=== PATIENT | male | born 2000 | race American Indian/Alaskan Native ===

== ENCOUNTER 2020-03-15 17:50 | Inpatient (IN) | payer MEDICAID ==
[~2020-03-15] VITALS: Ht 180.3 cm; Wt 59.0 kg
[2020-03-15] MEDS ORDERED: SERT50TA12 PO (19:11)
[2020-03-15 19:32] LABS: BASOPHILS % (AUTO) 0.6 % (0.0-2.0); EOSINOPHILS % (AUTO) 2.5 % (1.0-6.0); HEMATOCRIT 48.6 % (41-53); HEMOGLOBIN 15.9 g/dL (13.5-17.5); LYMPHOCYTES # (AUTO) 4.6 K/uL (1.0-4.8); LYMPHOCYTES % (AUTO) 45.2 % (22.0-44.0); MEAN CORPUSCULAR HGB CONC 32.8 G/dL (31.0-37.0); MEAN CORPUSCULAR VOLUME 88 fL (80-100); MONOCYTES # (AUTO) 0.7 K/uL (0.1-1.0); MONOCYTES % (AUTO) 7.3 % (2.0-9.0); NEUTROPHILS # (AUTO) 4.5 K/uL (1.8-7.7); NEUTROPHILS % (AUTO) 44.4 % (40.0-70.0); PLATELET COUNT (AUTO) 209 K/uL (150-450); RED CELL DISTRIBUTION WIDTH 13.1 % (11.5-14.5)
[2020-03-15 19:47] LABS: ANION GAP 12 mmol/L (8-16); CALCIUM, TOTAL 8.5 mg/dL (8.8-10.5); CARBON DIOXIDE 23 mmol/L (22-29); CHLORIDE 103 mmol/L (98-107); CREATININE 1.09 mg/dL (0.60-1.30); GLOMERULAR FILTR. RATE CALC > 60 mL/min (>60); GLUCOSE,RANDOM 94 mg/dL (70-110); POTASSIUM 3.2 mmol/L (3.5-5.1); SODIUM SERUM 138 mmol/L (136-145); UREA NITROGEN, BLOOD 13 mg/dL (7-18)
[2020-03-15 19:52] LABS: ACETAMINOPHEN 5 mcg/mL (10-30); ALANINE AMINOTRANSFERASE 30 U/L (12-78); ALBUMIN 3.8 g/dL (3.4-5.0); ALKALINE PHOSPHATASE 51 U/L (46-116); ASPARTATE AMINOTRANSFERASE 21 U/L (15-37); BILIRUBIN,TOTAL 0.4 mg/dL (0.1-1.0); TOTAL PROTEIN, SERUM 7.4 g/dL (6.4-8.2)
[2020-03-15] MEDS ORDERED: POTASSIUM CHLORIDE 10% 40 MEQ/30 ML LIQUID UDCUP PO ONE (20:45)
[2020-03-15 21:22] LABS: CREATINE KINASE, TOTAL ONLY 106 U/L (39-308)
[2020-03-15] MEDS ORDERED: SODIUM CHLORIDE 0.9% 2,000 ML IV ONE (22:15)
[2020-03-15] MEDS ORDERED: MAGNESIUM SULFATE 2 GM/WATER 50 ML IV ONE (22:15)
[2020-03-15] MEDS ORDERED: LORazepam 2 MG/ML VIAL IVP ONE ×2 (22:15)
[2020-03-15] MEDS ORDERED: ACETAMINOPHEN 325 MG TABLET PO PRN (23:30)
[2020-03-16] MEDS ORDERED: LORazepam 2 MG/ML VIAL IVP ONE ×3 (01:15→14:45)
[2020-03-16 02:08] LABS: CARBON DIOXIDE 22 mmol/L (22-29); CHLORIDE 105 mmol/L (98-107); POTASSIUM 4.4 mmol/L (3.5-5.1); SODIUM SERUM 136 mmol/L (136-145)
[2020-03-16 02:09] LABS: ANION GAP 9 mmol/L (8-16); CALCIUM, TOTAL 7.3 mg/dL (8.8-10.5); CREATININE 1.19 mg/dL (0.60-1.30); GLOMERULAR FILTR. RATE CALC > 60 mL/min (>60); GLUCOSE,RANDOM 118 mg/dL (70-110); UREA NITROGEN, BLOOD 12 mg/dL (7-18)
[2020-03-16 02:18] LABS: LACTIC ACID 3.9 mmol/L (0.4-2.0)
[2020-03-16] MEDS ORDERED: CALCIUM GLUCONATE 100 MG/ML 10 ML IVP ONE (02:30)
[2020-03-16 02:32] LABS: CREATINE KINASE, TOTAL ONLY 100 U/L (39-308)
[2020-03-16 02:58] LABS: ABG A-A DIFF O2 7.4 mmHg (10-20.0); ABG BASE EXCESS -7.6 mmol/L (-2.0-3.0); ABG CARBOXYHEMOGLOBIN 0.5 % (0.0-3.0); ABG HCO3 18.8 mmol/L (22.0-26.0); ABG METHEMOGLOBIN 0.4 % (0.0-1.5); ABG OXYGEN CONTENT 20.2 mL/dL (15.0-23.0); ABG OXYGEN SATURATION 96.9 % (95.0-98.0); ABG PCO2 40 mmHg (35-45); ABG TOTAL HEMOGLOBIN 14.9 G/dL (12.0-18.0); PO2, ARTERIAL BG 94.6 mmHg (80.0-100.0); SOURCE, BLOOD GAS ARTERIAL; TEMPERATURE, FAHRENHEIT, BG 98.5 FAHREN (96.0-98.6)
[2020-03-16 03:00] LABS: ABG PH 7.293 (7.350-7.450); O2 DEVICE,BLOOD GAS ROOM AIR (ROOM AIR); SITE, BLOOD GAS RT RADIAL
[2020-03-16] MEDS ORDERED: MAGNESIUM SULFATE 2 GM/WATER 50 ML IV ONE (03:00)
[2020-03-16 03:32] LABS: AMPHET/METH SCREEN,URINE NEGATIVE (NEGATIVE); BARBITURATE SCREEN, URINE NEGATIVE (NEGATIVE); BENZODIAZEPINES SCREEN,URINE NEGATIVE (NEGATIVE); CANNABINOID SCREEN,URINE NEGATIVE (NEGATIVE); COCAINE SCREEN,URINE NEGATIVE (NEGATIVE); METHADONE SCREEN, URINE NEGATIVE (NEGATIVE); OPIATE SCREEN,URINE NEGATIVE (NEGATIVE); PHENCYCLIDINE SCREEN,URINE NEGATIVE (NEGATIVE)
[2020-03-16] MEDS ORDERED: SODIUM CHLORIDE 0.45% 2,000 ML IV ONE (14:00)
[2020-03-16] MEDS ORDERED: HALOPERIDOL LACTATE 5 MG/ML VIAL IVP ONE (14:45)
[2020-03-16 15:12] LABS: ABG A-A DIFF O2 29.8 mmHg (10-20.0); ABG BASE EXCESS -3.8 mmol/L (-2.0-3.0); ABG CARBOXYHEMOGLOBIN 1.2 % (0.0-3.0); ABG HCO3 21.9 mmol/L (22.0-26.0); ABG METHEMOGLOBIN 0.3 % (0.0-1.5); ABG OXYGEN CONTENT 20.1 mL/dL (15.0-23.0); ABG OXYGEN SATURATION 96.2 % (95.0-98.0); ABG OXYHEMOGLOBIN 94.8 % (94.0-100.0); ABG PCO2 35 mmHg (35-45); ABG PH 7.394 (7.350-7.450); ABG TOTAL HEMOGLOBIN 15.1 G/dL (12.0-18.0); PO2, ARTERIAL BG 77.5 mmHg (80.0-100.0); SOURCE, BLOOD GAS ARTERIAL; TEMPERATURE, FAHRENHEIT, BG 98.6 FAHREN (96.0-98.6)
[2020-03-16 15:13] LABS: SITE, BLOOD GAS RT RADIAL
[2020-03-16 15:14] LABS: O2 DEVICE,BLOOD GAS ROOM AIR (ROOM AIR)
[2020-03-16 16:50] LABS: LACTIC ACID 3.1 mmol/L (0.4-2.0)
[2020-03-17] VITALS (7 sets, daily range): BP systolic 117–134; BP diastolic 73–81
[2020-03-17 08:07] LABS: BASOPHILS % (AUTO) 0.3 % (0.0-2.0); EOSINOPHILS % (AUTO) 1.6 % (1.0-6.0); HEMATOCRIT 46.5 % (41-53); HEMOGLOBIN 15.7 g/dL (13.5-17.5); LYMPHOCYTES # (AUTO) 2.2 K/uL (1.0-4.8); LYMPHOCYTES % (AUTO) 23.8 % (22.0-44.0); MEAN CORPUSCULAR HEMOGLOBIN 29.8 pg (26.0-34.0); MEAN CORPUSCULAR HGB CONC 33.8 G/dL (31.0-37.0); MEAN CORPUSCULAR VOLUME 88 fL (80-100); MONOCYTES # (AUTO) 0.7 K/uL (0.1-1.0); MONOCYTES % (AUTO) 7.9 % (2.0-9.0); NEUTROPHILS # (AUTO) 6.3 K/uL (1.8-7.7); NEUTROPHILS % (AUTO) 66.4 % (40.0-70.0); PLATELET COUNT (AUTO) 165 K/uL (150-450); RED BLOOD CELL COUNT(AUTO) 5.28 MIL/uL (4.50-5.90); RED CELL DISTRIBUTION WIDTH 13.1 % (11.5-14.5)
[2020-03-17 08:34] LABS: ANION GAP 9 mmol/L (8-16); CALCIUM, TOTAL 8.7 mg/dL (8.8-10.5); CARBON DIOXIDE 27 mmol/L (22-29); CHLORIDE 100 mmol/L (98-107); CREATININE 0.93 mg/dL (0.60-1.30); GLOMERULAR FILTR. RATE CALC > 60 mL/min (>60); GLUCOSE,RANDOM 89 mg/dL (70-110); POTASSIUM 3.8 mmol/L (3.5-5.1); SODIUM SERUM 136 mmol/L (136-145); UREA NITROGEN, BLOOD 11 mg/dL (7-18)
[2020-03-17 08:39] LABS: ALANINE AMINOTRANSFERASE 31 U/L (12-78); ALBUMIN 3.6 g/dL (3.4-5.0); ALKALINE PHOSPHATASE 50 U/L (46-116); ASPARTATE AMINOTRANSFERASE 31 U/L (15-37); BILIRUBIN,TOTAL 1.8 mg/dL (0.1-1.0); TOTAL PROTEIN, SERUM 7.5 g/dL (6.4-8.2)
[2020-03-17 08:43] LABS: LACTIC ACID 0.9 mmol/L (0.4-2.0)
[2020-03-17] MEDS ORDERED: LORazepam 2 MG TABLET PO PRN (10:45)
[2020-03-17] MEDS ORDERED: HALOPERIDOL 5 MG TABLET PO PRN (10:45)
[2020-03-17] MEDS ORDERED: ZOLPIDEM TARTRATE 10 MG TABLET PO PRN (10:45)
[2020-03-17] MEDS ORDERED: MAGNESIUM HYDROXIDE SUSPENSION 30 ML UDCUP PO PRN (13:30)
[2020-03-17] MEDS ORDERED: NICOTINE 14 MG/24 HOUR PATCH TD PRN (13:30)
[2020-03-17] MEDS ORDERED: ONDANSETRON HCL 4 MG TABLET PO PRN (13:30)
[2020-03-17] MEDS ORDERED: IBUPROFEN 400 MG TABLET PO PRN (13:30)
[2020-03-17] MEDS ORDERED: CloNIDine HCL 0.1 MG TABLET PO PRN (13:30)
[2020-03-17] MEDS ORDERED: DOCUSATE SODIUM 100 MG CAPSULE PO PRN (13:30)
[2020-03-17] MEDS ORDERED: MAG HYDROX/AL HYDROX/SIMETH ES 30 ML SUSPENSION UDCUP PO PRN (13:30)
[2020-03-17] MEDS ORDERED: ACETAMINOPHEN 325 MG TABLET PO PRN (13:30)
[2020-03-17] MEDS ORDERED: PETROLATUM,WHITE 28 GM JELLY TP PRN (13:30)
[2020-03-17] MEDS ORDERED: LOPERAMIDE HCL 2 MG CAPSULE PO PRN (13:30)
[2020-03-17] MEDS ORDERED: GuaiFENesin/D-METHORPHAN [SUGAR-FREE] 200-20MG/10 ML SYRUP UDCUP PO PRN (13:30)
[2020-03-17] MEDS ORDERED: ALBUTEROL SULFATE HFA 90 MCG/PUFF 8 GM INHALER IH PRN (13:30)
[2020-03-17] MEDS ORDERED: DIAZEPAM 10 MG TABLET PO PRN (14:00)
[2020-03-17] MEDS: SULFAMETHOX/TRIMETH DS 800-160 MG/TABLET PO SCH (17:47)
[2020-03-17] MEDS: CEPHALEXIN MONOHYDRATE 500 MG CAPSULE PO SCH (17:47)
[2020-03-17] MEDS: MIRTAZAPINE 15 MG TABLET PO SCH (21:22)
[2020-03-18] VITALS (8 sets, daily range): BP systolic 103–134; BP diastolic 62–86
[2020-03-18] MEDS ORDERED: DIAZEPAM 10 MG TABLET PO PRN (07:00)
[2020-03-18 08:26] LABS: APPEARANCE,URINE CLEAR (CLEAR); GLUCOSE, URINE (UA) NEGATIVE (NEGATIVE); KETONES,URINE 40 mg/dL (NEGATIVE); LEUKOCYTE ESTERASE ,URINE SMALL (NEGATIVE); NITRATE,URINE NEGATIVE (NEGATIVE); OCCULT BLOOD,URINE LARGE (NEGATIVE); PROTEIN,URINE NEGATIVE (NEGATIVE)
[2020-03-18 08:40] LABS: AMPHET/METH SCREEN,URINE NEGATIVE (NEGATIVE); BARBITURATE SCREEN, URINE NEGATIVE (NEGATIVE); BENZODIAZEPINES SCREEN,URINE POSITIVE (NEGATIVE); CANNABINOID SCREEN,URINE NEGATIVE (NEGATIVE); COCAINE SCREEN,URINE NEGATIVE (NEGATIVE); METHADONE SCREEN, URINE NEGATIVE (NEGATIVE); OPIATE SCREEN,URINE NEGATIVE (NEGATIVE)
[2020-03-18 08:41] LABS: PHENCYCLIDINE SCREEN,URINE NEGATIVE (NEGATIVE)
[2020-03-18 08:51] LABS: BILIRUBIN,URINE PRELIM. POSITIVE (NEGATIVE)
[2020-03-18 09:04] LABS: BACTERIA,URINE None Seen /HPF (None Seen); CALCIUM OXALATE CRYSTALS,UR Few /LPF (None Seen); SQUAMOUS EPITHELIAL CELL,UR Few /LPF (None Seen)
[2020-03-18] MEDS: CEPHALEXIN MONOHYDRATE 500 MG CAPSULE PO SCH ×3 (09:05→16:22)
[2020-03-18] MEDS: DIAZEPAM 10 MG TABLET PO SCH ×4 (09:05→20:13)
[2020-03-18] MEDS: SULFAMETHOX/TRIMETH DS 800-160 MG/TABLET PO SCH ×2 (09:05→16:22)
[2020-03-18] MEDS: MIRTAZAPINE 15 MG TABLET PO SCH (20:12)
[2020-03-19] VITALS: BP 100/65
[2020-03-19 08:04] VITALS: BP 107/60
[2020-03-19] MEDS: SULFAMETHOX/TRIMETH DS 800-160 MG/TABLET PO SCH ×2 (08:43→16:18)
[2020-03-19] MEDS: CEPHALEXIN MONOHYDRATE 500 MG CAPSULE PO SCH ×3 (08:43→16:18)
[2020-03-19] MEDS: DIAZEPAM 10 MG TABLET PO SCH ×4 (08:43→20:15)
[2020-03-19 08:45] LABS: CHOL/HDL RATIO 2.8 (4.2-7.3)
[2020-03-19 16:08] VITALS: BP 108/70
[2020-03-19 16:39] VITALS: BP 108/70
[2020-03-19] MEDS: MIRTAZAPINE 15 MG TABLET PO SCH (20:15)
[2020-03-20 01:17] VITALS: BP 111/65
[2020-03-20 01:19] VITALS: BP 111/65
[2020-03-20] MEDS ORDERED: DIAZEPAM 5 MG TABLET PO PRN (07:00)
[2020-03-20 08:01] VITALS: BP 105/71
[2020-03-20] MEDS: DIAZEPAM 5 MG TABLET PO SCH ×4 (08:12→20:09)
[2020-03-20] MEDS: CEPHALEXIN MONOHYDRATE 500 MG CAPSULE PO SCH ×3 (08:12→16:16)
[2020-03-20] MEDS: SULFAMETHOX/TRIMETH DS 800-160 MG/TABLET PO SCH ×2 (08:12→16:16)
[2020-03-20 16:15] VITALS: BP 114/67
[2020-03-20] MEDS: MIRTAZAPINE 15 MG TABLET PO SCH (20:09)
[2020-03-21 00:03] VITALS: BP 128/73
[2020-03-21 05:25] VITALS: BP 115/76
[2020-03-21] MEDS ORDERED: DIAZEPAM 5 MG TABLET PO PRN (07:00)
[2020-03-21] MEDS: CEPHALEXIN MONOHYDRATE 500 MG CAPSULE PO SCH ×2 (08:25→12:31)
[2020-03-21] MEDS: SULFAMETHOX/TRIMETH DS 800-160 MG/TABLET PO SCH (08:25)
[2020-03-21 08:41] VITALS: BP 106/67
[2020-03-21] MEDS ORDERED: MIRT-89 PO (11:03)
[2020-03-21] MEDS ORDERED: CEPH-582 PO (11:03)
[2020-03-21] MEDS ORDERED: BACTDSB PO (11:04)
== END 2020-03-21 12:35 | disposition home or self-care (01) | DRG 751 ==
LOC: EMS 17:52 → B3A 03-17 11:27 → B2S 03-17 11:30
PROVIDERS: ADMIT Psychiatry & Neurology Child & Adolescent Psychiatry
DX: F33.2 Major depressive disorder, recurrent severe without psychotic features (principal); E87.2 Acidosis; R45.851 Suicidal ideations; E87.6 Hypokalemia; F12.90 Cannabis use, unspecified, uncomplicated; F17.210 Nicotine dependence, cigarettes, uncomplicated; F10.129 Alcohol abuse with intoxication, unspecified; H57.04 Mydriasis; Z79.899 Other long term (current) drug therapy; Z91.5 Personal history of self-harm; F41.9 Anxiety disorder, unspecified; Y90.5 Blood alcohol level of 100-119 mg/100 ml; R00.0 Tachycardia, unspecified; T50.902A Poisoning by unspecified drugs, medicaments and biological substances, intentional self-harm, initial encounter; Y92.89 Other specified places as the place of occurrence of the external cause
CPT/HCPCS: 80307; 82330; 82805; 83605; 83735; 84443; 93005; 96365; 96366; 96375; 96376; 99291; 99292; G0480; G0481; J0610; J1630; J2060; J3475; J7030

== ENCOUNTER 2020-03-22 17:04 | Emergency (ER) | payer MEDICAID ==
[~2020-03-22] VITALS: Ht 180.3 cm; Wt 75.0 kg
[~2020-03-22 17:04] MED LIST: BACTDSB PO; CEPH-582 PO; MIRT-89 PO
[2020-03-22 20:24] VITALS: BP 121/79
== END 2020-03-22 20:24 | disposition home or self-care (01) ==
LOC: EMS 17:05
DX: R45.851 Suicidal ideations (principal); F32.9 Major depressive disorder, single episode, unspecified; F17.210 Nicotine dependence, cigarettes, uncomplicated; F12.90 Cannabis use, unspecified, uncomplicated
CPT/HCPCS: Z7502